=== PATIENT | female | born 1935 | race Caucasian/White ===

== ENCOUNTER 2016-06-22 12:28 | Inpatient (IN) | payer MEDICARE, OTHER ==
--- NOTE | ~2016-06-22 | DS ---
Discharge Summary [place] [address] [facility] [place]. [address] NAME: JAMIE RYAN : 37 STATUS : ADM IN PAT#: [id number] AGE: 80 ADM/REG DATE : 06/22/16 MR#: [id number] REPORT SERV DATE: 06/25/16 DICTATED BY: AZNGA KAILEE DATE: 06/25/16 REPORT STATUS : Draft TRANSCRIBED BY: MODL DATE: 06/25/16 ADMISSION DATE: 06/22/2016 DISCHARGE DATE: 06/25/2016 FINAL HOSPITAL DIAGNOSES: 1. Influenza. 2. Urinary tract infection. 3. Dementia. CONSULTATIONS: None. PROCEDURES: CT brain done on the showing stable generalized moderate atrophy, moderate amount of old deep white matter changes, pansinusitis. CURRENT PHYSICAL FINDINGS AND HPI: Please see initial dictated H and P by Dr. Bang. In brief, the patient was transferred from the alf with fever and was noted to have UTI and influenza positive. HOSPITAL COURSE: Initial vital signs showed a blood pressure of 108/52, subsequently her blood pressures have been in the 120s to 130s. She had a T-max here of 100.0 on the , but she has been afebrile. Otherwise, pulse rates have been in the 60s to 80s and sats have been well maintained on room air. Initial chest x-ray was negative. Initial lab work showed a blood gas with a normal pH, CO2, O2 was 72 on 4 L. Procalcitonin was less than 0.05. Initial BMP was unremarkable with the exception of an elevated creatinine of 146. Subsequently, this was 1.51 and 1.1 on the . LFTs were unremarkable. Lactate was 0.7. White count was 5.5. Influenza A was positive. Urinalysis was positive for leukocyte esterase, trace ketones, positive nitrites, and bacteria. Blood cultures are negative to this point. Urine culture grew out Klebsiella pneumonia which patient has had here before. She was admitted, initially started on IV antibiotics after appropriate cultures. Her home medications were reviewed and ordered as per her alf transfer. I saw her the following day and she was very difficult to arouse. It was suspected to be a medication effect, as it was noted that her BuSpar had been recently increased, but because of reported history of falls, a CT head was done which was negative. She had already been started on Tamiflu and this was continued. She was appropriate later in the day and with medication reduction including decreasing her Seroquel at bedtime, she has had no further sedation episodes, however, she has been pleasantly confused. She has had no other issues here and will be discharged back to [facility]. DISCHARGE MEDICATIONS: BuSpar 10 b.i.d., Plavix 75, Colace 100, Aricept 10, Cymbalta 30, Pepcid 20, Namenda XR 28, MiraLAX. She will continue Tamiflu b.i.d. for a total of 5 days, potassium 20, Pravachol 40, Seroquel decreased from 100 to 50 at bedtime, Carafate 1 g t.i.d., prednisone 5, Tylenol 325, Remeron 15 at bedtime, Zofran p.r.n. sublingual, Ultram 50 p.r.n. daily, Klonopin 0.25 daily and 1 mg at bedtime p.r.n. She will also continue Levaquin 750 for a total of 3 more doses both for the UTI and for some degree of prophylaxis against pneumonia with her recent influenza. She will not restart her BuSpar 5 b.i.d. Discharge Summary [address] [address] NAME: JAMIE RYAN : 37 STATUS : ADM IN [facility]#: [id number] AGE: 80 ADM/REG DATE : 06/22/16 MR#: [id number] REPORT SERV DATE: 06/25/16 DICTATED BY: NGA BERNARDO DATE: 06/25/16 REPORT STATUS : Draft TRANSCRIBED BY: MODL DATE: 06/25/16 TLF/YAKOV Nga Bernardo M.D. / [id number] CC: Nga Bernardo M.D.
--- NOTE | ~2016-06-22 | DS ---
Discharge Summary [address] [place]. [address] NAME: JAMIE ASTUDILLO : 37 STATUS : DIS IN PAT#: [id number] AGE: 80 ADM/REG DATE : 06/22/16 MR#: [id number] REPORT SERV DATE: 06/26/16 DICTATED BY: NGA BERNARDO DATE: 06/26/16 REPORT STATUS : Draft TRANSCRIBED BY: MODL DATE: 06/26/16 ADMISSION DATE: 06/22/2016 DISCHARGE DATE: 06/26/2016 ADDENDUM: Addendum to discharge summary. Addendum as follows: Ms. Astudillo was felt stable for discharge straight back to Rehab Facility, however, she was unable to get her medications for discharge on 06/25/2016. She was discharged on 06/26/2016 without change in medications prior to my arrival to the floor. DISPOSITION: The patient has been discharged to [facility] the morning of 06/26/2016. SHOSHANAF/YAKOV Nga Bernardo M.D. / [id number] CC: Nga Bernardo M.D.
--- NOTE | ~2016-06-22 | HP ---
History And Physical [place] [id number] [facility] [place]. [address] NAME: JAMIE RYAN : 37 STATUS : ADM IN [facility]#: [id number] AGE: 80 ADM/REG DATE : 06/22/16 MR#: [id number] REPORT SERV DATE: 06/22/16 DICTATED BY: SHEA BANG DATE: 06/22/16 REPORT STATUS : Draft TRANSCRIBED BY: MODL DATE: 06/22/16 DATE OF ADMISSION: 06/22/2016 REASON FOR ADMISSION: Influenza A and urinary tract infection. HISTORY: This is a 80-year-old, almost 81-year-old, white female with very advanced dementia. She does have behavioral disturbances. She is unable to give history. History is obtained from chart. The temperature was 103 this morning. She had 28 white cells per high-powered field on the urinalysis seen in the emergency room by Binta, the nurse practitioner. She comes from [facility]. PAST MEDICAL HISTORY: She is said to have major depressive disorder and anxiety. 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 She has had a bone fracture of her foot in the past; anemia of chronic disease; history of osteoarthritis and falling; history of hyperlipidemia; and gastroesophageal reflux disease. HOME MEDICATIONS: Are as follows: Tramadol b.i.d. p.r.n.; sucralfate 1 g 3 times a day; Seroquel 100 mg at bedtime; prednisone 5 mg p.o. daily; pravastatin 40 mg p.o. daily; potassium 20 mEq p.o. daily; MiraLAX 1 packet daily; mirtazapine 15 mg p.o. at bedtime; memantine ER 28 mg p.o. every morning; famotidine 20 mg p.o. daily; Duloxetine 30 mg p.o. daily; donepezil 10 mg p.o. at bedtime; docusate sodium 100 mg p.o. b.i.d.; Plavix 75 mg p.o. q.a.m.; Klonopin 1 mg p.o. scheduled daily; clonazepam 0.5 half tablet p.r.n. uncontrolled anxiety; BuSpar 5 mg twice a day recently decreased from 10 mg; and acetaminophen as needed for pain. ALLERGIES: INCLUDED PENICILLIN, CODEINE, AND ACTONEL. SHE WAS DISCHARGED ON 03/04/2016 WITH A HISTORY OF A FALL, ACUTE ENCEPHALOPATHY, ADVANCED DEMENTIA, AND RENAL FAILURE STAGE 4. SHE HAS HAD OCCASIONAL EPISODES OF HYPOTENSION. SHE DOES HAVE A HISTORY OF CONSTIPATION. SOCIAL HISTORY: The patient lives in a long term. Apparently does not smoke or drink. FAMILY HISTORY: Not obtainable with the patient. REVIEW OF SYSTEMS: Not obtainable with the patient. PHYSICAL EXAMINATION: GENERAL: Elderly obese appearing white female, in no acute distress. VITAL SIGNS: Blood pressure 140/70 with a heart rate of 80, respiratory rate 16, afebrile. HEENT: EOM appears to be conjugate bilaterally. Sclerae clear. Conjunctivae pink. The patient does not respond to movement or touch or verbal stimulation though she is awake, opens eyes, and moans and grunts. The answered questions are non intelligible. EOMI. Sclerae appear to be clear. Eyes move conjugatively. NECK: No bruit without any JVD. History And Physical [address] [address] NAME: JAMIE RYAN : 37 STATUS : ADM IN [facility]#: [id number] AGE: 80 ADM/REG DATE : 06/22/16 MR#: [id number] REPORT SERV DATE: 06/22/16 DICTATED BY: SHEA BANG DATE: 06/22/16 REPORT STATUS : Draft TRANSCRIBED BY: YAKOV DATE: 06/22/16 CHEST: Clear to A and P. HEART: Regular S1, S2 without murmur, gallop, or click. ABDOMEN: Soft, nontender. Bowel sounds positive. EXTREMITIES: Extremities have evoked some tenderness when palpated. There is no distal edema. Distal pulses are not palpable. She does have wasting of her muscles of lower extremities and the interosseous muscles of her feet. NEUROLOGIC: She appears symmetric, neurologically there is no tremor and there is no increased tone. She does resist range of motion. LABORATORY DATA: The chest x-ray shows a stable large hiatal hernia with bibasilar atelectasis and stable elevation of the right hemidiaphragm. Arterial blood gas was obtained, 7.41, 36, and 72. The comprehensive metabolic profile showed a procalcitonin less than 0.05, the sodium 140, potassium 4.2, creatinine 1.51 with a BUN of 27 and a creatinine clearance of 33 mL a minute. Influenza screen was positive for influenza A. Urinalysis showed 13 white cells per high- powered field and many bacteria. Specific gravity 1.018 with a pH of 5. Lactate level was 0.7. The white count was 5.5 with a hemoglobin of 11.3, hematocrit of 34.2, and platelet count was 101. INR 1.2. Urinalysis level 1 repeated showed 56 white cells per high-powered field. The creatinine before this was 1.46 and the CBC initially had shown a hemoglobin 11, hematocrit 35, white count 4.1, and platelets 109. ASSESSMENT: 1. Viral illness, influenza A, low platelet count, low white count. We will start Tamiflu at 75 b.i.d. for the next 5 days. 2. Possible urinary tract infection. She does have some pyuria and she is being treated with IV Levaquin. We will continue this. 3. Altered mental status secondary to rather advanced dementia. 4. 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 She does wander at the long term, she has a WanderGuard on the right ankle. She has a life expectancy of likely less than or equal to 6 months. Therefore, we will not entertain vigorous aggressive cardiac resuscitation in the event of her natural ensuing. 5. Degenerative joint disease. 6. Dry cough observed today, likely related to the influenza. 7. Anemia. 8. Other problems as listed above. PLAN: Admit her to the hospital. Continue the antibiotics and Tamiflu. She has a low procalcitonin. I suspect this illness is more likely due to the influenza A. DB/MODL Shea Bang M.D. History And Physical [address] [address] NAME: JAMIE RYAN : 37 STATUS : ADM IN [facility]#: [id number] AGE: 80 ADM/REG DATE : 06/22/16 MR#: [id number] REPORT SERV DATE: 06/22/16 DICTATED BY: SHEA BANG DATE: 06/22/16 REPORT STATUS : Draft TRANSCRIBED BY: MODL DATE: 06/22/16 / [id number] CC: Cira Brenner M.D. Bruce Pendley, M.D.
[2016-06-22 09:56] LABS: BASOPHILS 0.2 %; BASOPHILS ABSOLUTE 0.01 10/3/uL (0.0-0.16); EOSINOPHILS 2.2 %; EOSINOPHILS ABSOLUTE 0.09 10/3/uL (0.0-0.53); HEMOGLOBIN 11.3 g/dL (12.0-16.0); IMMATURE GRANULOCYTES 0.2 %; IMMATURE GRANULOCYTES ABSOLUTE 0.01 10/3/uL (0.0-0.11); LYMPHOCYTES 21.7 %; LYMPHOCYTES ABSOLUTE 0.89 10/3/uL (0.67-4.30); MEAN CORPUS HGB CONC 32.3 g/dL (32.0-36.0); MEAN CORPUSCULAR HEMOGLOB 29.1 pg (26.0-34.0); MEAN CORPUSCULAR VOLUME 90.2 fL (80-100); MEAN PLATELET VOLUME 9.6 fL (9.2-13.0); MONOCYTES 11.2 %; MONOCYTES ABSOLUTE 0.46 10/3/uL (0.21-1.20); NEUTROPHILS 64.5 %; NEUTROPHILS ABSOLUTE 2.65 10/3/uL (2.02-8.40); PLATELET COUNT 109 10/3/uL (150-400); RBC DISTRIBUTION WIDTH 13.7 % (12.0-16.0); RED CELL COUNT 3.88 10/6/uL (4.0-5.6); WHITE BLOOD CELLS 4.1 10/3/uL (4.5-10.5)
[2016-06-22 09:57] LABS: MANUAL DIFF NO %
[2016-06-22 10:12] LABS: CHLORIDE, SERUM 104 MMOL/L (96-112); CO2 (CARBON DIOXIDE) 24 MMOL/L (24-34); CREATININE 1.46 MG/DL (0.55-1.02); GFR AFRICAN AMERICAN 39 ML/MIN (>=60); GFR NON AFRICAN AMERICAN 34 ML/MIN (>=60); POTASSIUM, SERUM 3.9 MMOL/L (3.5-5.3); SODIUM, SERUM 138 MMOL/L (135-148)
[2016-06-22 10:13] LABS: BUN (BLOOD UREA NITROGEN) 26 MG/DL (6-23); GLUCOSE, SERUM 90 MG/DL (60-99)
[2016-06-22 10:25] LABS: ASCORBIC ACID (UR NOT ORDER) NEG (NEG); BILIRUBIN, URINE NEGATIVE (NEG); KETONE, URINE NEGATIVE (NEG)
[2016-06-22 11:55] LABS: BASOPHILS 0.4 %; BASOPHILS ABSOLUTE 0.02 10/3/uL (0.0-0.16); EOSINOPHILS 1.1 %; EOSINOPHILS ABSOLUTE 0.06 10/3/uL (0.0-0.53); ER CBC TAT 0 Hrs 05 Mins; HEMATOCRIT 34.2 % (36.0-48.0); HEMOGLOBIN 11.3 g/dL (12.0-16.0); LYMPHOCYTES 30.4 %; LYMPHOCYTES ABSOLUTE 1.67 10/3/uL (0.67-4.30); MANUAL DIFF NO %; MEAN CORPUSCULAR HEMOGLOB 30.1 pg (26.0-34.0); MONOCYTES 8.5 %; MONOCYTES ABSOLUTE 0.47 10/3/uL (0.21-1.20); NEUTROPHILS 59.6 %; NEUTROPHILS ABSOLUTE 3.28 10/3/uL (2.02-8.40); PLATELET COUNT 101 10/3/uL (150-400); RBC DISTRIBUTION WIDTH 13.8 % (12.0-16.0); RED CELL COUNT 3.76 10/6/uL (4.0-5.6); WHITE BLOOD CELLS 5.5 10/3/uL (4.5-10.5)
[2016-06-22 12:02] LABS: INTERNATIONAL NORMAL RATI 1.2 UNITS (-)
[2016-06-22 12:03] LABS: PARTIAL THROMBO TIME 27.2 SEC (22.5-37.2)
[2016-06-22 12:09] LABS: A/G RATIO 0.9 (0.7-1.9); ALKALINE PHOSPHATASE 81 U/L (45-117); BUN (BLOOD UREA NITROGEN) 27 MG/DL (6-23); CALCIUM, SERUM 8.1 MG/DL (8.5-10.4); CHLORIDE, SERUM 105 MMOL/L (96-112); CO2 (CARBON DIOXIDE) 24 MMOL/L (24-34); CREATININE 1.51 MG/DL (0.55-1.02); GFR AFRICAN AMERICAN 38 ML/MIN (>=60); GFR NON AFRICAN AMERICAN 33 ML/MIN (>=60); GLOBULIN 3.5 G/DL (2.5-4.1); GLUCOSE, SERUM 100 MG/DL (60-99); POTASSIUM, SERUM 4.2 MMOL/L (3.5-5.3); SGOT(AST) 19 U/L (5-40); SGPT(ALT) 16 U/L (5-65); SODIUM, SERUM 140 MMOL/L (135-148); TOTAL BILIRUBIN 0.3 MG/DL (0-1.2); TOTAL PROTEIN 6.5 G/DL (6.0-8.5)
[2016-06-22 12:14] LABS: LACTATE 0.7 MMOL/L (0.3-2.4)
[~2016-06-22 12:28] MED LIST: *UNABLE3; ARICEPT10 PO; ATV1 PO; CYMBALTA30 PO; DOCUSOFT S100 MG PO; DSS PO; EFFEXOR XR150 MG PO; FLAG500TAB PO; FOLIC PO; HYDROCHLOROT12.5 MG PO; KLONO5 PO; KLOR-CON M2020 MEQ PO; LOP25 PO; METHOC500B PO; MIRALAXPKT PO; MOBIC15 MG PO; MULTIPLE VIT PO; NAMENXR28 PO; NITROSTAT0.4 MG SL; OYST-CAL500 MG PO; P5 PO; PLAVIX PO; PRAVACHOL40 MG PO; PRIN10 PO; PRIN20 PO; PROAM25 PO; PROTONIX PO; REMERON30 MG PO; SEROQUEL1C PO; SEROQUEL50 MG PO; SUCR PO; T PO; ULTRAM50 PO; ZANAFLEX2 MG PO; ZANTAC 150 PO; ZANTAC 75 PO; ZOCOR40 PO
[2016-06-22 12:44] LABS: ASCORBIC ACID (UR NOT ORDER) NEG (NEG); BILIRUBIN, URINE NEGATIVE (NEG); ER URINALYSIS TAT 0 Hrs 11 Mins; KETONE, URINE TRACE MG/DL (NEG); WBC (NOT ORDERED) (RFLEX) 13 (0-5)
[2016-06-22 12:45] LABS: LEUKOCYTE ESTERASE(NOT OR TRACE (NEG); NITRITE (URINE) POS (NEG)
[2016-06-22 12:54] LABS: INFLUENZA A SCREEN POSITIVE (NEGATIVE); INFLUENZA B SCREEN NEGATIVE (NEGATIVE)
[2016-06-22 13:22] LABS: PROCALCITONIN <0.05 ng/mL (<0.5)
[2016-06-22] MEDS ORDERED: BUSPAR10 PO (13:32)
[2016-06-22] MEDS ORDERED: BUSPAR5 PO (13:33)
[2016-06-22] MEDS ORDERED: KLONO1 PO (13:34)
[2016-06-22] MEDS ORDERED: PLAVIX PO (13:34)
[2016-06-22] MEDS ORDERED: DSS PO (13:35)
[2016-06-22] MEDS ORDERED: ARICEPT10 PO (13:35)
[2016-06-22] MEDS ORDERED: CYMBALTA30 PO (13:36)
[2016-06-22] MEDS ORDERED: REM15 PO (13:37)
[2016-06-22] MEDS ORDERED: PEP20 PO (13:37)
[2016-06-22] MEDS ORDERED: MIRALAX POWDER1 PKT PO (13:37)
[2016-06-22] MEDS ORDERED: KDUR20 PO (13:38)
[2016-06-22] MEDS ORDERED: NAMENXR28 PO (13:38)
[2016-06-22] MEDS ORDERED: PRAVACHOL40 MG PO (13:39)
[2016-06-22] MEDS ORDERED: P5 PO (13:39)
[2016-06-22] MEDS ORDERED: SEROQUEL1C PO (13:40)
[2016-06-22] MEDS ORDERED: SUCR PO (13:41)
[2016-06-22] MEDS ORDERED: ULTRAM50 PO (13:42)
[2016-06-22] MEDS ORDERED: T PO (13:44)
[2016-06-22] MEDS ORDERED: KLONO5 PO (13:45)
[2016-06-22 13:59] LABS: ALLENS TEST Pos; HCO3 (ACTUAL BICARBONATE) 22.3 MEQ/L (23-27); INSTRUMENT SERIAL # 8087; METHEMOGLOBIN 0.2 % (0-3); O2 CONTENT 14.4 VOL% (18-24); PCO2 (CO2 TENSION) 36 MMHG (35-45); PO2 (O2 TENSION) 72 MMHG (79-93); SAMPLE Arterial; pH 7.41 (7.37-7.43)
[2016-06-25 04:32] LABS: CALCIUM, SERUM 8.3 MG/DL (8.5-10.4); CHLORIDE, SERUM 110 MMOL/L (96-112); CO2 (CARBON DIOXIDE) 23 MMOL/L (24-34); GFR AFRICAN AMERICAN 55 ML/MIN (>=60); GFR NON AFRICAN AMERICAN 48 ML/MIN (>=60); GLUCOSE, SERUM 85 MG/DL (60-99); POTASSIUM, SERUM 3.4 MMOL/L (3.5-5.3); SODIUM, SERUM 143 MMOL/L (135-148)
[2016-06-25 04:39] LABS: BUN (BLOOD UREA NITROGEN) 16 MG/DL (6-23)
[2016-06-25] MEDS ORDERED: LEVAQUIN750 MG PO (22:56)
[2016-06-25] MEDS ORDERED: SEROQUEL25 PO (23:00)
[2016-06-25] MEDS ORDERED: OSELTAMIVIR (23:00)
[2016-06-25] MEDS ORDERED: ZOFRAN ODT4 MG PO/SL (23:02)
== END 2016-06-26 11:27 | DRG 194 ==
LOC: ER 12:28 → 4SO 15:27
PROVIDERS: Internal Medicine; Nurse Practitioner; Physical Medicine & Rehabilitation
DX: J10.1 Influenza due to other identified influenza virus with other respiratory manifestations (principal); N39.0 Urinary tract infection, site not specified; G30.9 Alzheimer's disease, unspecified; F02.81 Dementia in other diseases classified elsewhere, unspecified severity, with behavioral disturbance; B96.1 Klebsiella pneumoniae [K. pneumoniae] as the cause of diseases classified elsewhere; D63.1 Anemia in chronic kidney disease; F32.9 Major depressive disorder, single episode, unspecified; F41.9 Anxiety disorder, unspecified; I12.9 Hypertensive chronic kidney disease with stage 1 through stage 4 chronic kidney disease, or unspecified chronic kidney disease; N18.1 Chronic kidney disease, stage 1; M19.90 Unspecified osteoarthritis, unspecified site; Z91.81 History of falling; E78.5 Hyperlipidemia, unspecified; K21.9 Gastro-esophageal reflux disease without esophagitis; Z79.02 Long term (current) use of antithrombotics/antiplatelets; Z79.891 Long term (current) use of opiate analgesic; Z79.52 Long term (current) use of systemic steroids; Z88.0 Allergy status to penicillin; Z88.5 Allergy status to narcotic agent; Z88.8 Allergy status to other drugs, medicaments and biological substances; E66.9 Obesity, unspecified; Z91.83 Wandering in diseases classified elsewhere
CPT/HCPCS: 36600; 70450; 71010; 80048; 80053; 81001; 82805; 83605; 84145; 85025; 85610; 85730; 87040; 87077; 87086; 87186; 87804; 93005; 94640; 99285; A9270-GY; J1956

== ENCOUNTER 2016-08-24 16:24 | Emergency (ER) | payer MEDICARE, OTHER ==
[~2016-08-24 16:24] MED LIST changes: +BUSPAR10 PO; +BUSPAR5 PO; +KDUR20 PO; +KLONO1 PO; +LEVAQUIN750 MG PO; +MIRALAX POWDER1 PKT PO; +OSELTAMIVIR; +PEP20 PO; +REM15 PO; +SEROQUEL25 PO; +ZOFRAN ODT4 MG PO/SL
[2016-08-24] MEDS ORDERED: BUSPAR10 PO (16:41)
[2016-08-24] MEDS ORDERED: PLAVIX PO (16:41)
[2016-08-24] MEDS ORDERED: DSS PO (16:42)
[2016-08-24] MEDS ORDERED: ARICEPT10 PO (16:42)
[2016-08-24] MEDS ORDERED: CYMBALTA30 PO (16:42)
[2016-08-24] MEDS ORDERED: NAMENXR28 PO (16:43)
[2016-08-24] MEDS ORDERED: MIRALAX POWDER1 PKT PO (16:43)
[2016-08-24] MEDS ORDERED: REM15 PO (16:43)
[2016-08-24] MEDS ORDERED: PEP20 PO (16:43)
[2016-08-24] MEDS ORDERED: KLOR-CON M2020 MEQ PO (16:43)
[2016-08-24] MEDS ORDERED: SUCR PO (16:44)
[2016-08-24] MEDS ORDERED: PRAVACHOL40 MG PO (16:44)
[2016-08-24] MEDS ORDERED: T PO (16:44)
[2016-08-24] MEDS ORDERED: P5 PO (16:44)
[2016-08-24] MEDS ORDERED: KLONO5 PO (16:45)
[2016-08-24] MEDS ORDERED: BISR PR (16:45)
[2016-08-24] MEDS ORDERED: FLEETS ENEMA PR (16:46)
[2016-08-24] MEDS ORDERED: MOMUD PO (16:47)
== END 2016-08-24 21:00 | disposition home or self-care (01) ==
LOC: ER 16:24
DX: S09.90XA Unspecified injury of head, initial encounter (principal); R41.82 Altered mental status, unspecified; M79.1 Myalgia; E78.5 Hyperlipidemia, unspecified; K21.9 Gastro-esophageal reflux disease without esophagitis; I12.9 Hypertensive chronic kidney disease with stage 1 through stage 4 chronic kidney disease, or unspecified chronic kidney disease; N18.9 Chronic kidney disease, unspecified; Z91.81 History of falling; Z88.0 Allergy status to penicillin; Z88.5 Allergy status to narcotic agent; Z79.02 Long term (current) use of antithrombotics/antiplatelets; Z79.899 Other long term (current) drug therapy; W19.XXXA Unspecified fall, initial encounter
CPT/HCPCS: 70450; 72125; 72170; 93005; 99284